=== PATIENT | male | born 1955 | race Caucasian/White ===

== ENCOUNTER 2016-04-24 19:19 | Emergency (ER) | payer MEDICARE, SELFPAY ==
[2016-04-24 20:05] VITALS: BP 137/73; PULSE 104; TEMP 98.7; BMI 34.0
[2016-04-24 20:28] LABS: AUTOMATED BASOPHIL 0.5 % (0-2); AUTOMATED EOSINOPHIL 0.4 % (0-5); AUTOMATED LYMPH 10.2 % (17-44); AUTOMATED MONOCYTE 12.8 % (3-10); AUTOMATED NEUTROPHIL 76.1 % (45-76); MPV 8.8 fL (7.4-10.4)
[2016-04-24 20:40] LABS: BLOOD UREA NITROGEN 17 MG/DL (9-20); CALC CORRECTED 8.9 MG/DL (8.4-10.2); CALCIUM 8.3 MG/DL (8.4-10.2); CALCULATED OSMOLALITY 272 MOs/Kg (270-290); CHLORIDE 103 mEq/L (98-107); GLUCOSE 271 MG/DL (70-99); SODIUM LEVEL 135 mEq/L (137-146); TOTAL PROTEIN 6.9 G/DL (6.3-8.2)
== END 2016-04-24 21:31 | disposition left against medical advice (07) ==
LOC: ED 19:19
DX: R10.9 Unspecified abdominal pain (principal)
CPT/HCPCS: 80053; 85025; 99281; 99282